=== PATIENT | male | born 1985 | race Asian ===

== ENCOUNTER 2021-02-13 13:16 | Emergency (ER) | payer SELFPAY ==
[~2021-02-13] VITALS: Ht 175.3 cm; Wt 68.2 kg
[2021-02-13 13:25] VITALS: TEMP 97.5
[2021-02-13 13:52] LABS: BASO % 0.6 % (0.0-2.0); EOS % 0.4 % (0-4.0); GRAN # 2.2 (1.4-6.5); GRAN % 43.9 % (42.2-75.2); HEMOGLOBIN 15.4 g/dl (13.5-18.0); LYMPH # 2.4 (1.2-3.4); LYMPH % 49.4 % (20.0-51.0); MEAN CELL VOLUME 93 fl (80.0-100.0); MEAN CORPUSCULAR HEMOGLOBIN 31 pg (27.0-31.0); MEAN CORPUSCULAR HGB CONC 34 g/dl (33.0-37.0); MEAN PLATELET VOLUME 10.5 fl (7.4-10.4); MONO # 0.3 (0.1-0.6); MONO % 5.7 % (1.7-9.3); PLATELET COUNT 242 K/mm3 (130-400); RED BLOOD COUNT 4.97 M/mm3 (4.20-5.60); REDCELL DISTRIBUTION WIDTH-CV 11.9 % (11.5-14.5)
[2021-02-13 14:30] LABS: ALANINE AMINOTRANSFERASE 24 U/L (4-49); ALBUMIN 4.5 gm/dL (3.5-5.0); ALKALINE PHOSPHATASE 42 U/L (50-136); ANION GAP 7 mmol/L (7-16); AST,SGOT 32 U/L (15-37); BILIRUBIN,TOTAL 0.8 mg/dL (0.0-1.0); BLOOD UREA NITROGEN 13 mg/dL (9-20); CALCIUM 9.4 mg/dL (8.4-10.2); CARBON DIOXIDE 29 mmol/L (22-30); CHLORIDE 103 mmol/L (98-107); CREATININE, serum 0.72 (0.66-1.25); GLUCOSE 96 mg/dL (74-106); POTASSIUM 3.9 mmol/L (3.4-5.0); SODIUM 139 mmol/L (137-145); TOTAL PROTEIN 7.7 gm/dL (6.4-8.2)
[2021-02-13 14:44] LABS: TROPONIN-I < 0.012 ng/mL (0.000-0.035)
[2021-02-13 16:20] VITALS: BP 121/84; PULSE 67
== END 2021-02-13 16:24 | disposition home or self-care (01) ==
LOC: COL.ER 13:16
PROVIDERS: Family Medicine; Nurse Practitioner Primary Care
DX: R07.89 Other chest pain (principal); Z20.822 Contact with and (suspected) exposure to COVID-19